=== PATIENT | female | born 1975 | race Asian ===

== ENCOUNTER 2022-11-17 | Outpatient (REF) | payer OTHER, SELFPAY ==
[2022-11-17 00:34] LABS: COVID-19 Test Positive (Negative); IDNOW Serial# 6674DD1D
== END 2022-11-17 00:01 | disposition home or self-care (01) ==
LOC: HO.LAB
PROVIDERS: Visit Provider Internal Medicine
DX: Z20.822 Contact with and (suspected) exposure to COVID-19 (principal)
CPT/HCPCS: 87635

== ENCOUNTER 2025-06-15 22:17 | Emergency (ER) | payer OTHER, SELFPAY ==
[2025-06-15 22:32] VITALS: BP 116/78; PULSE 74; RESP 16; TEMP 36.6; O2SAT 97; BMI 28.2
--- NOTE | 2025-06-15 23:16 | ED_ITS ---
HPI - General Adult General Chief complaint: Wound/Laceration Stated complaint: Poked with used scissors at work Time Seen by Provider: 06/15/25 22:46 Source: patient Limitations: no limitations History of Present Illness ED Provider: Chasity Avila PA-C HPI narrative: 50-year-old female presents after work-related injury. 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 She is requesting post exposure prophylaxis. Related Data Home Medications ?Medication ?Instructions ?Recorded ?Confirmed multivitamin 1 cap PO DAILY 06/15/25/08/12 Allergies Allergy/AdvReac Type Severity Reaction Status Date / Time ibuprofen (From Advil) Allergy Intermediate Rash Verified 06/15/25 22:34 Review of Systems Review of Systems: Yes all other systems are reviewed and are negative Constitutional: Constitutional: Denies fatigue and Denies fever(s) Endocrine: Endocrine: Denies fatigue PMFSH Past Medical History Attestation statement: The following information was validated with the patient. Social History Social History Advance Directives: Yes Advance Directives Information Provided: Yes Advance Directives on File: No Physical Exam ED Vital Signs: Vital Signs - 24 hr 06/15/25 22:32 Temperature 97.9 F Pulse Rate 74 Respiratory Rate 16 Blood Pressure 116/78 Pulse Oximetry 97 Oxygen Delivery Method Room Air BMI result Body Mass Index 28.2 Const Other: Alert well-appearing Resp Effort & Inspection: normal respiratory effort Cardio Other: Normal peripheral perfusion Skin Other: Warm dry no rash Extrem Other: Faint puncture over right thumb, it is barely visualized Psych Other: Cooperative Medical Decision Making Medical Decision Making [facility] Narrative: 50-year-old female presents after work-related injury. 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 She is requesting post exposure prophylaxis. No chronic issues History: Per patient I have considered the following differential diagnoses: Exposure to potential blood borne pathogen Plan: We will screen appropriate labs per the protocol, she sent with a starter pack for HIV prophylaxis. She can continue to follow up with the work connection and/or primary care I have independently reviewed the following tests: Labs: Pending at the time of discharge Discharge Plan Discharge Clinical Impression: Puncture wound of right thumb Patient Disposition: Home, Self-Care Instructions: Puncture Wound (ED) Additional Instructions: We initiated post exposure prophylaxis for you, take the medication as directed, you should be on this medication for a month. You received doses for the 1st initial days. Follow up with either the work connection, or your primary care, whatever it is dictated to you by your supervisor component assembler. We screen initial baseline labs, including LFTs, and testing for hepatitis-B, hepatitis-C and HIV. You will be contacted if you screen positive for any of the viruses. Prescriptions: No Action multivitamin Capsule 1 cap PO DAILY Print Language: Lao
[2025-06-15] MEDS: Post Exposure Medication Kit 1 KIT PO (23:36)
[2025-06-15 23:38] VITALS: BP 116/78; PULSE 74; RESP 16; TEMP 36.6; O2SAT 97
[2025-06-15 23:44] LABS: Alanine Aminotransferase 21 U/L (0-31); Aspartate Amino Transferase 26 U/L (5-31); Creatinine Clr Calc Pharmacy 91.0; Estimated Glomerular Filt Rate > 60
[2025-06-16 03:55] LABS: HBS Num1 3.93 mIU/mL (0-7.99); HBsAGNum1 0.38 S/CO (0.00-0.99); HIV Num 1 0.16 S/CO (0.00-0.99); Hepatitis B Surface Antigen Negative (Negative); ~HepC Num1 0.24 S/CO (0.00-0.79); ~Hepatitis B Surface Antibody NONREACTIVE (Nonreactive); ~Hepatitis C Antibody Nonreactive (Nonreactive)
== END 2025-06-15 23:38 | disposition home or self-care (01) ==
PROVIDERS: Physician Assistant Medical; Emergency Provider Emergency Medicine; PCP Internal Medicine
DX: S61.031A Puncture wound without foreign body of right thumb without damage to nail, initial encounter (principal); W27.2XXA Contact with scissors, initial encounter; Y93.F9 Activity, other caregiving; Y92.239 Unspecified place in hospital as the place of occurrence of the external cause; Y99.0 Civilian activity done for income or pay; Z77.21 Contact with and (suspected) exposure to potentially hazardous body fluids
CPT/HCPCS: 36415; 82565; 84450; 84460; 84702; 86706; 86803; 87340; 87389; 99282; 99283